=== PATIENT | female | born 1975 | race Caucasian/White ===

== ENCOUNTER → 2017-06-01 | Day surgery (SDC) | payer OTHER ==
[~2017-06-01] MED LIST: BUPIVACAINE HCL 0.5% INJ 30 ML VIAL INJ ONE; CLINDAMYCIN PHOS 900MG/ D5W 50 50 ML IV ONE; DEXAMETHASONE SOD PHOS INJ 4 MG/ML VIAL ONE; DIPHENHYDRAMINE HCL INJ 1 ML ONE; EPHEDRINE SULFATE INJ 50 MG/10 ML SYR ONE; FENTANYL CITRATE/PF 100MCG/2 ML INJ ONE; HYDROMORPHONE 2MG/ML INJ IV SCH; LEXAPRO10 MG PO; LIDOCAINE HCL 2% LOCAL INJ 5 ML SDV VIAL INJ ONE; MIDAZOLAM HCL 2 MG/2 ML VIAL ONE; ONDANSETRON HCL INJ 2 MG/ML VIAL ONE; PROPOFOL IV EMULSION 10 MG/ML 20 ML VIAL ONE; SEVOFLURANE INHAL SOLN 250 ML PEN BTL ONE
--- NOTE | 2017-06-01 10:25 | Operative Report ---
DATE OF PROCEDURE: June 01, 2017 INSTRUCTOR MODELING: Kaveh Meier PA-C The patient was brought to the operating room for induction of anesthesia. Throughout this case, my PA's assistance was necessary for retraction of soft tissue and positioning of the extremity. This allows for efficient and technically successful execution of the operation and is considered medically necessary. PREOPERATIVE DIAGNOSIS: Comminuted, displaced, right distal radius fracture. POSTOPERATIVE DIAGNOSIS: Comminuted, displaced, right distal radius fracture. PROCEDURE: Open reduction and internal fixation, right distal radius. INDICATIONS: The patient is a 42-year-old lady who has a right distal radius fracture. She has marked volar displacement. The findings and options have been discussed with the patient. We plan on open reduction with internal fixation using a volar plate. The risks and benefits have been discussed. She states she understands and wishes to proceed. DESCRIPTION OF PROCEDURE: The patient was brought to the operating room and placed under general anesthetic. She received prophylactic antibiotics in the holding area. Her right upper extremity was prepped and draped in a sterile manner. A preoperative time out was performed. The extremity was exsanguinated, and a proximal tourniquet was inflated to 250 mmHg. A volar approach to the distal radius was made. The floor of the flexor carpi radialis was identified and utilized. Care was taken to avoid injury to the palmar cutaneous branch of the median nerve. The flexor carpi radialis was retracted to the ulnar aspect. The pronator quadratus was elevated off of the distal radius. The fracture site was identified. There was marked volar displacement. A [employer] volar locking plate was used to assist in obtaining a reduction. The plate was sequentially tightened with a compression screw while traction was applied. Intraoperative x-ray was used to assist in positioning the plate. The plate was fixed to the distal radius using a combination of locking and compression screws. Intraoperative x-rays confirmed anatomic reduction and good position of the hardware. The wound was irrigated. The pronator quadratus was reapproximated. The skin was closed with subcuticular Vicryl and interrupted nylon stitches. A sterile bandage and a sugar-tong splint were applied. The patient was extubated and transported to the recovery room in stable condition. There was no blood loss, and all needle and sponge counts were correct. Job#: [id number] MH
== END | disposition home or self-care (01) ==
LOC: OR 05:45
PROVIDERS: ATTEND Specialist
DX: S52.571A Other intraarticular fracture of lower end of right radius, initial encounter for closed fracture (principal); F41.9 Anxiety disorder, unspecified; W18.40XA Slipping, tripping and stumbling without falling, unspecified, initial encounter; Y93.01 Activity, walking, marching and hiking; Y92.89 Other specified places as the place of occurrence of the external cause; Y99.8 Other external cause status
CPT/HCPCS: 25608; 81025; J1100; J1200; J2001; J2250; J2405; 76000

== ENCOUNTER 2018-05-15 10:06 | Emergency (ER) | payer OTHER ==
[~2018-05-15] VITALS: Ht 172.7 cm; Wt 72.6 kg
[~2018-05-15 10:06] MED LIST changes: -BUPIVACAINE HCL 0.5% INJ 30 ML VIAL INJ ONE; -CLINDAMYCIN PHOS 900MG/ D5W 50 50 ML IV ONE; -DEXAMETHASONE SOD PHOS INJ 4 MG/ML VIAL ONE; -DIPHENHYDRAMINE HCL INJ 1 ML ONE; -EPHEDRINE SULFATE INJ 50 MG/10 ML SYR ONE; -FENTANYL CITRATE/PF 100MCG/2 ML INJ ONE; -HYDROMORPHONE 2MG/ML INJ IV SCH; -LIDOCAINE HCL 2% LOCAL INJ 5 ML SDV VIAL INJ ONE; -MIDAZOLAM HCL 2 MG/2 ML VIAL ONE; -ONDANSETRON HCL INJ 2 MG/ML VIAL ONE; -PROPOFOL IV EMULSION 10 MG/ML 20 ML VIAL ONE; -SEVOFLURANE INHAL SOLN 250 ML PEN BTL ONE
--- OUTSIDE RECORDS SUMMARY | 2018-05-15 10:09 | XMS REPORT | Encounter Summary ---
Author Organization Unknown Address [address] [place] [address] Phone [phone] Care Team Providers Care Curator Of Photography And Prints Name Role Phone Ralph Cruz 3 [phone] Reason for Visit Medical Complaint Instructions 1. Allergic rhinitis fluticasone 50 mcg/actuation nasal spray,suspension allergies: care instructions Depo-Medrol 80 mg/mL suspension for injection rapid flu (A+B) 2. Allergic cough benzonatate 200 mg capsule Discussion Note Pt is in NAD; Verbalizes understanding of all instructions with no questions at this time. Plan of Care Patient Instructions Take fluticasone as needed for congestion. Bramwell one spray in each nostril twice a day. Take a warm, steamy shower, blow your nose thereafter, and spray in each nostril. Tilt your head up for about 10 seconds and breath through your mouth. Do not sniff or snort the medication in or else the medication will go to your throat and not be absorbed appropriately. Take over the counter Xyzal for allergy like symptoms like runny nose, sneezing and watery eyes. Take benzonatate for cough as directed. Take medications as prescribed and follow up with a PCP within 2-3 if symptoms worsen as discussed. Reminders Provider Appointments None recorded. Lab Rapid Flu (A+B) 02/25/2017 [facility] Referral None recorded. Procedures None recorded. Surgeries None recorded. Imaging None recorded. Medications Name Start Date acetaminophen 300 mg-codeine 30 mg tablet benzonatate 200 mg capsule Take 1 capsule 3 times a day by oral route as needed. ymseaicnzatoskf-bsnohaqcmspgwpo-OH 2 mg-30 mg-10 mg/5 mL syrup chlorhexidine gluconate 0.12 % mouthwash Depo-Medrol 80 mg/mL suspension for injection 80 mg/mL IM injectable x 1 escitalopram 10 mg tablet fluticasone 50 mcg/actuation nasal spray,suspension Bramwell 2 sprays every day by intranasal route as needed. terbinafine HCl 250 mg tablet Medications Administered Name Date Depo-Medrol 80 mg/mL suspension for injection 80 mg/mL IM injectable x 1 [id number] Vitals Height Weight BMI Blood Pressure 5 ft 8 in 155 lbs 23.6 kg/m2 120/74 mm[Hg] Lab Results Date Name Specimen Result Interpretation Description Value Range Status Address Rapid Flu (A+B) Influenza a negative [facility]: [address] [place] [address] Influenza B negative [facility]: [facility] Allergies Code Code System Name Reaction Severity Status Onset Penicillins Active Problems None recorded. Procedures None recorded. Vaccine List None recorded. Social History Smoking Status Never Smoker Past Encounters 02/25/2017 Allergic Rhinitis; Allergic Cough Citlalli Perla, CITY ADMINISTRATOR-C: [address] [place] [address], Ph. History of Present Illness Gvims-Ozcfgposiz-Lhqlikn Reported By: Patient HPI: Location: head/sinuses, chest. Quality: nasal/sinus congestion, dry cough. Duration: 3-4days. Severity: moderate. Onset/Timing: gradual. Context: no sick contacts, no foreign travel, non-smoker, allergies. Modifying factors: OTC medication. Associated Symptoms: no sputum production, no shortness of breath, no wheezing, no change in number of pillows needed to sleep at night, no sweats, no significant weight gain, no significant weight loss, no morning cough, no sore throat, no vomiting, no diarrhea, no rash, no nausea, no fever, no muscle aches, no headache; nasal congestion, sinus pressure, rhinorrhea, post nasal drip Review of Systems:ROS as noted in the HPI Review of Systems Basic Reported By: Patient Physical Exam Adult Basic, 14-21 Yr Male, Adult Female Complete Reported By: Patient Constitutional: General Appearance: healthy-appearing, well-nourished, well-developed. Level of Distress: NAD. Ambulation: ambulating normally Psychiatric: Mental Status: active and alert. Orientation: to time, to place, to person Vjw-Mqsv-Yhngs-Throat: Ears: no lesions on external ear, no outer ear tenderness, EACs clear, TMs clear. Hearing: no hearing loss. Nose: no lesions on external nose, nares patent, no septal deviation, nasal passages clear, no sinus tenderness, nasal discharge--rhinorrhea, post nasal drip; pale and edematous nasal turbinates bilaterally. Lips, Teeth, and Gums: no mouth or lip ulcers, no bleeding gums, normal dentition. Oropharynx: moist mucous membranes, no erythema, no exudates, tonsils not enlarged Neck: Lymph Nodes: no cervical LAD Lungs: Respiratory effort: no dyspnea, no tachypnea, no use of accessory muscles, no intercostal retractions. Auscultation: breath sounds normal Cardiovascular: Heart Auscultation: RRR, no murmurs Neurologic: Gait and Station: normal gait, normal station
--- OUTSIDE RECORDS SUMMARY | 2018-05-15 10:09 | XMS REPORT | Encounter Summary ---
Author Organization Unknown Address [address] [place] [address] Phone [phone] Care Team Providers Care Vp Biology Name Role Phone Ralph Cruz 3 [phone] Reason for Visit Medical Complaint Instructions 1. Viral bronchitis rapid flu (A+B) ProAir HFA 90 mcg/actuation aerosol inhaler 2. Sinusitis fluticasone 50 mcg/actuation nasal spray,suspension 3. Cough rapid strep group A, throat benzonatate 200 mg capsule Discussion Note Take all medicines exactly as prescribed. Call your doctor if you think you are having a problem with your medicine. Get some extra rest. Take an xpyn-xfx-fdvprvm pain medicine, such as acetaminophen (Tylenol), ibuprofen (Advil, Motrin), or naproxen (Aleve) to reduce fever and relieve body aches. Read and follow all instructions on the label. Do not take two or more pain medicines at the same time unless the doctor told you to. Many pain medicines have acetaminophen, which is Tylenol. Too much acetaminophen (Tylenol) can be harmful. Take an zqcu-jtd-rvohyky cough medicine that contains dextromethorphan to help quiet a dry, hacking cough so that you can sleep. Avoid cough medicines that have more than one active ingredient. Read and follow all instructions on the label. Breathe moist air from a humidifier, hot shower, or sink filled with hot water. The heat and moisture will thin mucus so you can cough it out. Do not smoke. Smoking can make bronchitis worse. If you need help quitting, talk to your doctor about stop-smoking programs and medicines. These can increase your chances of quitting for good. Patient educational handouts: No information available. Plan of Care Reminders Provider Appointments None recorded. Lab Rapid Strep Group a, Throat 03/28/2018 [facility] Rapid Flu (A+B) 03/28/2018 [facility] Referral None recorded. Procedures None recorded. Surgeries None recorded. Imaging None recorded. Medications Name Start Date benzonatate 200 mg capsule Take 1 capsule 3 times a day by oral route as needed for 10 days. escitalopram 10 mg tablet fluticasone 50 mcg/actuation nasal spray,suspension Nehalem 2 sprays twice a day by intranasal route as needed for 7 days. ProAir HFA 90 mcg/actuation aerosol inhaler Inhale 2 puffs 4 times a day by inhalation route as needed for 7 days. Medications Administered None recorded. Vitals Height Weight BMI Blood Pressure 5 ft 8 in 159 lbs 24.2 kg/m2 110/80 mm[Hg] Lab Results Date Name Specimen Result Interpretation Description Value Range Status Address Rapid Flu (A+B) Influenza a negative [facility]: [address] [place] [address] Influenza B negative [facility]: [address] [place] [address] Rapid Strep Group a, Throat Result negative [facility]: [address] [place] [address] Swab Location Left and Right tonsillar pillars [facility]: [address] [place] [address] Allergies Code Code System Name Reaction Severity Status Onset Penicillins Active Problems Name Status Onset Date Source Gastroesophageal Reflux Disease Active 03/28/2018 Anxiety Active Allergic Rhinitis Active Procedures None recorded. Vaccine List None recorded. Social History Smoking Status Never Smoker Past Encounters 03/28/2018 Viral Bronchitis; Sinusitis; Cough Drooteo Albrecht PA-C: [address] [place] [address], Ph. History of Present Illness Ldsca-Nsdpwcweup-Vrijwba Reported By: Patient HPI: Location: head/sinuses. Quality: productive cough, colored phlegm, nasal/sinus congestion. Duration: 4days. Severity: mild. Onset/Timing: sudden. Context: no foreign travel, non-smoker, sick contact. Modifying factors: OTC medication. Associated Symptoms: no shortness of breath, no wheezing, no change in number of pillows needed to sleep at night, no sweats, no significant weight gain, no significant weight loss, no morning cough, no sore throat, no vomiting, no diarrhea, no rash, no nausea, no fever, no muscle aches, green sputum, headache Review of Systems Basic Reported By: Patient Constitutional: Constitutional: no fever Eyes: Eyes: no eye complaints Cipe-Ikfc-Vnsuv-Throat: Ears: ear pain. Nose: nose/sinus problems. Mouth/Throat: no sore throat, no bleeding gums, no mouth complaints, no teeth problems Cardiovascular: Cardiovascular: no chest pain, no shortness of breath, no known heart murmur Respiratory: Respiratory: no wheezing, no shortness of breath, cough Gastrointestinal: Gastrointestinal: no abdominal pain, no vomiting / diarrhea Genitourinary: Genitourinary: no urinary complaints, no discharge Musculoskeletal: Musculoskeletal: no muscle aches, no muscle weakness, no arthralgias/joint pain, no back pain Skin: Skin: no abnormal / changing mole, no jaundice, no rashes Neurologic: Neurologic: no loss of consciousness, no weakness, no numbness, no seizures, no dizziness, no headaches, headache Physical Exam Adult Basic, Adult Female Complete Reported By: Patient Constitutional: General Appearance: healthy-appearing, well-nourished, well-developed. Level of Distress: NAD. Ambulation: ambulating normally Psychiatric: Mental Status: active and alert. Orientation: to time, to place, to person Eyes: Lids and Conjunctivae: non-injected, no discharge, no pallor. Pupils: PERRLA. EOM: EOMI. Sclerae: non-icteric. Vision: acuity grossly intact Xww-Emff-Kklsp-Throat: Ears: no lesions on external ear, no outer ear tenderness, EACs clear, TMs clear, middle ear fluid. Hearing: no hearing loss. Nose: no lesions on external nose, nares patent, no septal deviation, nasal passages clear, sinus tenderness, nasal discharge, nasal discharge--purulent, nasal discharge--rhinorrhea, post nasal drip. Lips, Teeth, and Gums: no mouth or lip ulcers, no bleeding gums, normal dentition. Oropharynx: moist mucous membranes, no erythema, no exudates, tonsils not enlarged; cobblestoning Neck: Neck: supple, trachea midline, no masses, FROM. Lymph Nodes: no cervical LAD, no supraclavicular LAD Lungs: Respiratory effort: no dyspnea, no tachypnea, no use of accessory muscles, no intercostal retractions. Auscultation: breath sounds normal; harsh breath sounds scattered across bilateral post upper and lower lobes Cardiovascular: Heart Auscultation: RRR, no murmurs
--- OUTSIDE RECORDS SUMMARY | 2018-05-15 10:09 | XMS REPORT | Encounter Summary ---
Author Organization Unknown Address [address] [place] [address] Phone [phone] Care Team Providers Care Closer On Name Role Phone Ralph Cruz 3 [phone] Reason for Visit Medical Complaint Instructions 1. Exposure to Influenzavirus Tamiflu 75 mg capsule rapid flu (A+B) 2. Pain in throat rapid strep group A, throat Discussion Note: None recorded. Patient educational handouts: No information available. Plan of Care Patient Instructions otc tylenol and ibuprofen for body aches. increase fluids. otc mucinex as needed. follow up pcp Reminders Provider Appointments None recorded. Lab Rapid Flu (A+B) 06/25/2016 [facility] Rapid Strep Group a, Throat 06/25/2016 [facility] Referral None recorded. Procedures None recorded. Surgeries None recorded. Imaging None recorded. Medications Name Start Date azithromycin 250 mg tablet gnoryecfrrmjobd-yhjzmglognvivqz-IH 2 mg-30 mg-10 mg/5 mL syrup escitalopram 10 mg tablet gatifloxacin 0.5 % eye drops PLACE 1 GTT OU BID prednisolone acetate 1 % eye drops,suspension Tamiflu 75 mg capsule Take 1 capsule every day by oral route for 10 days. terbinafine HCl 250 mg tablet Medications Administered None recorded. Vitals Height Weight BMI Blood Pressure 5 ft 8 in 155 lbs 23.6 116/72 Lab Results Date Name Result Description Value Range Status Rapid Strep Group a, Throat Result negative Swab Location Left and Right tonsillar pillars Rapid Flu (A+B) Influenza a negative Influenza B negative Allergies None recorded. Problems None recorded. Procedures None recorded. Vaccine List None recorded. Social History Smoking Status Never Smoker Past Encounters 06/25/2016 Exposure to Influenzavirus; Pain in Throat Osvaldo Bridges MECHANICAL CAD DRAFTER-C: [address] [place] [address], Ph. History of Present Illness Throat-Oral Complaint Reported By: Patient HPI: Location: throat. Quality: sore throat. Severity: moderate. Duration: 2 days. Onset/Timing: gradual. Context: no foreign travel, non-smoker, sick contact. Modifying factors: OTC medication. Associated Symptoms: no sputum production, no shortness of breath, no wheezing, no change in number of pillows needed to sleep at night, no sweats, no significant weight gain, no significant weight loss, no morning cough, no vomiting, no diarrhea, no rash, no nausea, sore throat Review of Systems:ROS as noted in the HPI Review of Systems Basic Reported By: Patient Physical Exam Adult Basic, Adult Female Complete Reported By: Patient Constitutional: General Appearance: healthy-appearing, well-nourished. Level of Distress: NAD. Ambulation: ambulating normally Psychiatric: Mental Status: active and alert Eyes: Lids and Conjunctivae: non-injected, no discharge Lfe-Zdys-Gtdwo-Throat: Ears: no lesions on external ear, no outer ear tenderness, EACs clear, TMs clear. Hearing: no hearing loss. Nose: no lesions on external nose, nares patent, no septal deviation, nasal passages clear, no sinus tenderness, no nasal discharge. Lips, Teeth, and Gums: no mouth or lip ulcers. Oropharynx: moist mucous membranes, no erythema, no exudates, tonsils not enlarged Neck: Neck: trachea midline. Lymph Nodes: no cervical LAD Lungs: Respiratory effort: no dyspnea, no tachypnea, no use of accessory muscles, no intercostal retractions. Auscultation: breath sounds normal Cardiovascular: Heart Auscultation: RRR, no murmurs
--- OUTSIDE RECORDS SUMMARY | 2018-05-15 10:09 | XMS REPORT | Continuity of Care Document ---
Author Author [facility] Interface Address Unknown Phone Unavailable Problems Problem Status Onset Date Classification Date Reported Comments Source Sinusitis 03/28/2018 Diagnosis 03/28/2018 [facility] Cough 03/28/2018 Diagnosis 03/28/2018 [facility] Viral bronchitis 03/28/2018 Diagnosis 03/28/2018 [facility] Gastroesophageal Reflux Disease 03/28/2018 Problem 03/28/2018 [facility] Laryngitis 07/07/2017 Problem 07/08/2017 [facility] Viral Upper Respiratory Tract Infection 07/07/2017 Problem 07/08/2017 [facility] Viral upper respiratory tract infection 07/07/2017 Diagnosis 07/08/2017 [facility] Allergic rhinitis 02/25/2017 Diagnosis 02/25/2017 [facility] Allergic cough 02/25/2017 Diagnosis 02/25/2017 [facility] Exposure to Influenzavirus 06/25/2016 Diagnosis 06/25/2016 [facility] Pain in throat 06/25/2016 Diagnosis 06/25/2016 [facility] Anxiety Problem 03/28/2018 [facility] Allergic Rhinitis Problem 03/28/2018 [facility] Medications Medication Details Route Status Patient Instructions Ordering Provider Order Date Source Acetaminophen 300 MG / Codeine Phosphate 30 MG Oral Tablet acetaminophen 300 mg-codeine 30 mg tablet Active [facility] benzonatate 200 MG Oral Capsule benzonatate 200 mg capsule Take 1 capsule 3 times a day by oral route as needed for 10 days. Active [facility] Brompheniramine Maleate 0.4 MG/ML / Dextromethorphan Hydrobromide 2 MG/ML / Pseudoephedrine Hydrochloride 6 MG/ML Oral Solution zipsmgzkifrlgxd-ckaqussaxuismbw-XW 2 mg-30 mg-10 mg/5 mL syrup Active [facility] chlorhexidine gluconate 1.2 MG/ML Mouthwash chlorhexidine gluconate 0.12 % mouthwash Active [facility] 1 ML methylprednisolone acetate 80 MG/ML Injection [Depo-Medrol] Depo-Medrol 80 mg/mL suspension for injection 80 mg/mL IM injectable x 1 Active [facility] Escitalopram 10 MG Oral Tablet escitalopram 10 mg tablet Active [facility] Fluticasone propionate 0.05 MG/ACTUAT Metered Dose Nasal Caney fluticasone 50 mcg/actuation nasal spray,suspension Caney 2 sprays twice a day by intranasal route as needed for 7 days. Active [facility] terbinafine 250 MG Oral Tablet terbinafine HCl 250 mg tablet Active [facility] Prednisone 20 MG Oral Tablet prednisone 20 mg tablet Take 3 tabs PO QD x 2 days, the take 2 tabs PO QD x 2 days, then take 1 tab PO QD x 2 days. Take with food. Active [facility] 200 ACTUAT Albuterol 0.09 MG/ACTUAT Metered Dose Inhaler [ProAir] ProAir HFA 90 mcg/actuation aerosol inhaler Inhale 2 puffs every 4-6 hours by inhalation route as needed. Active [facility] Albuterol 0.09 MG/ACTUAT Metered Dose Inhaler ProAir HFA 90 mcg/actuation aerosol inhaler Inhale 2 puffs 4 times a day by inhalation route as needed for 7 days. Active [facility] Azithromycin 250 MG Oral Tablet azithromycin 250 mg tablet Active [facility] gatifloxacin 5 MG/ML Ophthalmic Solution gatifloxacin 0.5 % eye drops PLACE 1 GTT OU BID Active [facility] prednisolone acetate 10 MG/ML Ophthalmic Suspension prednisolone acetate 1 % eye drops,suspension Active [facility] Oseltamivir 75 MG Oral Capsule [Tamiflu] Tamiflu 75 mg capsule Take 1 capsule every day by oral route for 10 days. Active [facility] Allergies, Adverse Reactions, Alerts Substance Category Reaction Severity Reaction type Status Date Reported Comments Source Penicillins Allergy to substance 02/25/2017 [facility] Immunizations Immunization Date Given Site Status Last Updated Comments Source Results Order Name Results Value Reference Range Date Interpretation Comments Source Influenza A negative 03/28/2018 [facility] Influenza B negative 03/28/2018 [facility] RESULT negative 03/28/2018 [facility] SWAB LOCATION Left and Right tonsillar pillars 03/28/2018 [facility] RESULT negative 07/07/2017 [facility] SWAB LOCATION Left and Right tonsillar pillars 07/07/2017 [facility] Influenza A negative 07/07/2017 [facility] Influenza B negative 07/07/2017 [facility] Influenza A negative 02/25/2017 [facility] Influenza B negative 02/25/2017 [facility] RESULT negative 06/25/2016 [facility] SWAB LOCATION Left and Right tonsillar pillars 06/25/2016 [facility] Influenza A negative 06/25/2016 [facility] Influenza B negative 06/25/2016 [facility] Vital Signs Vital Sign Value Date Comments Source Diastolic (mm Hg) 80 03/28/2018 [facility] Height 68 03/28/2018 [facility] Systolic (mm Hg) 110 03/28/2018 [facility] Weight 159 03/28/2018 [facility] Diastolic (mm Hg) 74 07/07/2017 [facility] Height 68 07/07/2017 [facility] Systolic (mm Hg) 112 07/07/2017 [facility] Weight 156 07/07/2017 [facility] Diastolic (mm Hg) 74 02/25/2017 [facility] Height 68 02/25/2017 [facility] Systolic (mm Hg) 120 02/25/2017 [facility] Weight 155 02/25/2017 [facility] Diastolic (mm Hg) 72 06/25/2016 [facility] Height 68 06/25/2016 [facility] Systolic (mm Hg) 116 06/25/2016 [facility] Weight 155 06/25/2016 [facility] Encounters Location Location Details Encounter Type Encounter Number Reason For Visit Attending Provider ADM Date DC Date Status Source [place] - [facility] - [id number] NELIDA Arenas-C: [address] [place] [address], Ph. [id number] Osvaldo Bridges 06/25/2016 [facility] [place] - [facility] - [id number] ZambranoP-C: [address] [place] [address], Ph. [id number] Citlalli Perla 02/25/2017 [facility] [place] - [facility] - [id number] Perla SCRIPT GIRL-C: [address] [place] [address], Ph. [id number] Citlalli Neffroy 07/07/2017 [facility] [place] - [facility] - [id number] AcevedoC: [address] [facility], [place] [address], Ph. [id number] Doroteo Albrecht 03/28/2018 [facility] Procedures Procedure Code Date Perfomer Comments Source
--- OUTSIDE RECORDS SUMMARY | 2018-05-15 10:09 | XMS REPORT | Encounter Summary ---
Author Organization Unknown Address [address] [place] [id number] Phone [phone] Care Team Providers Care Biological Engineer Name Role Phone Ralph Cruz 3 [phone] Reason for Visit Medical Complaint Instructions 1. Viral upper respiratory tract infection rapid flu (A+B) ProAir HFA 90 mcg/actuation aerosol inhaler benzonatate 200 mg capsule 2. Laryngitis prednisone 20 mg tablet rapid strep group A, throat Discussion Note Pt is in NAD; Verbalizes understanding of all instructions with no questions at this time. Patient educational handouts: No information available. Plan of Care Patient Instructions Start ProAir Inhalers 2 puffs every 4-6 hrs as needed for shortness of breath/wheezing. Take Steroid taper as directed and with food to avoid GI discomfort. Take fluticasone as needed for congestion. [place] one spray in each nostril twice a day. Take a warm, steamy shower, blow your nose thereafter, and spray in each nostril. Tilt your head up for about 10 seconds and breath through your mouth. Do not sniff or snort the medication in or else the medication will go to your throat and not be absorbed appropriately. Take Benzonatate for cough as directed. Alternate with Ibuprofen and acetaminophen every 4hrs as needed for pain/fever/headache. Proper hydration and rest. Return to work/school if free of fever for 24-hrs. Do not share any utensils/cups, no kissing, recommend hand washing after coughing/sneezing/blowing nose and cover face when you do so. Take medications as prescribed. Follow up with your PCP within 2-3 days if symptoms worsen as discussed. In case of emergency call 911 or go to nearest ER. Reminders Provider Appointments None recorded. Lab Rapid Flu (A+B) 07/07/2017 [facility] Rapid Strep Group a, Throat 07/07/2017 [facility] Referral None recorded. Procedures None recorded. Surgeries None recorded. Imaging None recorded. Medications Name Start Date benzonatate 200 mg capsule Take 1 capsule 3 times a day by oral route as needed. escitalopram 10 mg tablet prednisone 20 mg tablet Take 3 tabs PO QD x 2 days, the take 2 tabs PO QD x 2 days, then take 1 tab PO QD x 2 days. Take with food. ProAir HFA 90 mcg/actuation aerosol inhaler Inhale 2 puffs every 4-6 hours by inhalation route as needed. Medications Administered None recorded. Vitals Height Weight BMI Blood Pressure 5 ft 8 in 156 lbs 23.7 kg/m2 112/74 mm[Hg] Lab Results Date Name Specimen Result Interpretation Description Value Range Status Address Rapid Strep Group a, Throat Result negative [facility]: [address] [place] [address] Swab Location Left and Right tonsillar pillars [facility]: [address] [place] [address] Rapid Flu (A+B) Influenza a negative [facility]: [address] [place] [address] Influenza B negative [facility]: [address] [place] [address] Allergies Code Code System Name Reaction Severity Status Onset Penicillins Active Problems Name Status Onset Date Source Laryngitis Active 07/07/2017 Viral Upper Respiratory Tract Infection Active 07/07/2017 Anxiety Active Allergic Rhinitis Active Procedures None recorded. Vaccine List None recorded. Social History Smoking Status Never Smoker Past Encounters 07/07/2017 Viral Upper Respiratory Tract Infection; Laryngitis Citlalli Perla, [facility]: [address] [place] [address], Ph. History of Present Illness Throat-Oral Complaint Reported By: Patient HPI: Location: throat. Quality: productive cough, congested; hoarseness. Severity: moderate. Duration: 4 days. Onset/Timing: sudden. Context: no sick contacts, no foreign travel, non-smoker, allergies. Modifying factors: ; None. Associated Symptoms: no fever, no headache, no shortness of breath, no wheezing, no change in number of pillows needed to sleep at night, no sweats, no significant weight gain, no significant weight loss, no morning cough, no vomiting, no diarrhea, no rash, no nausea, body aches, yellow-green, thick sputum; sinus pressure, nasal congestion, post nasal drip, hoarseness, productive cough, and chills x 4 days [id number] Reported By: Patient HPI: Quality: symptoms worse during the day. Duration: constant, 4 days. Context: no ill contacts, no tick/insect bites, no recent travel, no new medications. Associated Symptoms: no fever/chills, no headache, no muscle aches, no rash, no lethargy, cough, nasal passage blockage (stuffiness), nasal discharge; sinus pressure, post nasal drip, hoarseness, body aches, and chills. Modifying Factors nothing gives relief Review of Systems:ROS as noted in the HPI Review of Systems Basic Reported By: Patient Physical Exam Adult Basic, Adult Female Complete Reported By: Patient Constitutional: General Appearance: healthy-appearing, well-nourished, well-developed. Level of Distress: NAD. Ambulation: ambulating normally Psychiatric: Mental Status: active and alert. Orientation: to time, to place, to person Eyes: Lids and Conjunctivae: non-injected, no discharge, no pallor. Pupils: PERRLA Lhm-Rotb-Txaxz-Throat: Ears: no lesions on external ear, no outer ear tenderness, EACs clear, TMs clear. Hearing: no hearing loss. Nose: no lesions on external nose, nares patent, no septal deviation, nasal passages clear, no sinus tenderness, nasal discharge--rhinorrhea, post nasal drip; pink and edematous nasal turbinates bilaterally. Lips, Teeth, [...]
[2018-05-15] MEDS ORDERED: CYCLOBENZAPRINE HCL 10 MG TAB PO NR (10:45)
[2018-05-15] MEDS ORDERED: KETOROLAC TROMETHAMINE 60 MG/2 ML VIAL IM ONE (10:45)
== END 2018-05-15 11:06 | disposition home or self-care (01) ==
LOC: ER 10:06 → FSED 11:06
DX: M54.2 Cervicalgia (principal); S16.1XXA Strain of muscle, fascia and tendon at neck level, initial encounter; V43.52XA Car driver injured in collision with other type car in traffic accident, initial encounter; Y92.488 Other paved roadways as the place of occurrence of the external cause; K21.9 Gastro-esophageal reflux disease without esophagitis
CPT/HCPCS: 99282; J1885

== ENCOUNTER 2020-10-14 10:07 | Inpatient (IN) | payer OTHER ==
[~2020-10-14] VITALS: Ht 172.7 cm; Wt 72.6 kg
[2020-10-14] MEDS ORDERED: SODIUM CHLORIDE 0.9% 1000ML 1,000 ML IV STA (10:40)
[2020-10-14 10:51] LABS: BASOPHILS % 0.4 % (0.0-1.0); EOSINOPHILS % 0.2 % (0.0-6.0); HEMATOCRIT 42.9 % (34.2-44.1); HEMOGLOBIN 14.4 g/dL (12.0-16.0); LYMPHOCYTES # (AUTO) 0.7 (1.0-3.2); MEAN CORPUSCULAR HEMOGLOBIN 28.3 pg (28-32); MEAN CORPUSCULAR HGB CONC 33.6 g/dL (31-35); MEAN CORPUSCULAR VOLUME 84.4 fL (81-99); MONOCYTES # (AUTO) 0.4 (0.2-0.8); NEUTROPHILS # (AUTO) 3.7 (2.1-6.9); PLATELET COUNT 198 x10e3/uL (140-360); RED BLOOD COUNT 5.08 x10e6/uL (3.6-5.1); RED CELL DISTRIBUTION WIDTH 14.7 % (11.7-14.4)
[2020-10-14] MEDS ORDERED: ONDANSETRON HCL INJ 2MG/ML 2ML 2 MG/ML VIAL IV NR (11:00)
[2020-10-14] MEDS ORDERED: PANTOPRAZOLE 40 MG 10ML VIAL IV NR (11:00)
[2020-10-14] MEDS ORDERED: MORPHINE SULFATE INJ 4 MG/ML INJ 1ML IV NR (11:00)
[2020-10-14 11:11] LABS: ALANINE AMINOTRANSFERASE 26 IU/L (0-55); ALBUMIN 4.3 g/dL (3.5-5.0); ALBUMIN/GLOBULIN RATIO 1.1 (0.8-2.0); ALKALINE PHOSPHATASE 77 IU/L (40-150); ANION GAP 17.5 mmol/L (8-16); BLOOD UREA NITROGEN 22 mg/dL (7-26); BUN/CREATININE RATIO 26 (6-25); CALCIUM 8.9 mg/dL (8.4-10.2); CARBON DIOXIDE 22 mmol/L (22-29); CHLORIDE 104 mmol/L (98-107); CREATINE KINASE 82 IU/L (29-168); CREATININE, SERUM 0.84 mg/dL (0.57-1.11); EST GLOMERULAR FILTRATION RATE > 60 ML/MIN (60-); GLUCOSE 103 mg/dL (74-118); MAGNESIUM 2.1 MG/DL (1.3-2.1); POTASSIUM 4.5 mmol/L (3.5-5.1); SODIUM 139 mmol/L (136-145)
[2020-10-14] MEDS ORDERED: SODIUM CHLORIDE 0.9% 1000ML 1,000 ML ONE (11:45)
[2020-10-14] MEDS ORDERED: SODIUM CHLORIDE 0.9% 1000ML 1,000 ML IV ONE (11:45)
[2020-10-14 11:52] LABS: CLARITY,URINE CLEAR (CLEAR); COLOR,URINE YELLOW (YELLOW)
[2020-10-14 11:54] LABS: LEUKOCYTE ESTERASE ,URINE NEGATIVE (NEGATIVE); NITRITE,URINE NEGATIVE (NEGATIVE)
[2020-10-14 11:55] LABS: KETONES,URINE 1+ (NEGATIVE); PROTEIN,URINE DIPSTICK 1+ (NEGATIVE); URINE UROBILINOGEN 0.2 mg/dL (0.2 - 1)
[2020-10-14 12:02] LABS: AMYLASE 55 U/L (25-125); LIPASE 19 U/L (8-78)
[2020-10-14 12:05] LABS: RBC,URINE 0-5 /HPF (0-5)
[2020-10-14 12:07] LABS: BACTERIA,URINE MODERATE /HPF; EPITHELIAL CELLS,URINE FEW /LPF
[2020-10-14] MEDS ORDERED: IOPAMIDOL 370 MG/ML 200 ML INFUS..BTL INJ ONE (12:32)
[2020-10-14] MEDS ORDERED: SODIUM CHLORIDE 0.9% 50ML 50 ML ONE (12:32)
[2020-10-14] MEDS ORDERED: CEFTRIAXONE 1 GM in SODIUM CHLORIDE 0.9% 50ML 50 ML IV SCH (13:45)
[2020-10-14] MEDS ORDERED: ESTRADIOL-NORE1 EAC1 PO (14:25)
[2020-10-14] MEDS: SODIUM CHLORIDE 0.9% 1000ML 1,000 ML IV SCH ×2 (14:39→20:32)
[2020-10-14 14:58] VITALS: BP 121/72
[2020-10-14] MEDS: ACETAMINOPHEN 325 MG TAB PO PRN (19:45)
[2020-10-14] MEDS: ESCITALOPRAM OXALATE 10 MG TAB PO SCH (19:45)
[2020-10-14] MEDS: PANTOPRAZOLE 40 MG 10ML VIAL IV SCH (19:48)
[2020-10-14 20:00] VITALS: BP 128/71
[2020-10-14 21:00] VITALS: BP 128/71
[2020-10-14] MEDS: METRONIDAZOLE 500MG/NS 100ML 100 ML IV SCH (21:28)
[2020-10-15] VITALS (8 sets, daily range): BP systolic 113–131; BP diastolic 59–73
[2020-10-15] MEDS: CEFTRIAXONE 1 GM in SODIUM CHLORIDE 0.9% 50ML 50 ML IV SCH ×2 (01:34→15:13)
[2020-10-15] MEDS: METRONIDAZOLE 500MG/NS 100ML 100 ML IV SCH ×3 (05:05→21:22)
[2020-10-15] MEDS: SODIUM CHLORIDE 0.9% 1000ML 1,000 ML IV SCH ×3 (05:05→21:22)
[2020-10-15] MEDS: ACETAMINOPHEN 325 MG TAB PO PRN (05:14)
[2020-10-15] MEDS: ONDANSETRON HCL INJ 2MG/ML 2ML 2 MG/ML VIAL IV PRN ×2 (05:14→21:57)
[2020-10-15 05:29] LABS: BASOPHILS % 0.4 % (0.0-1.0); EOSINOPHILS % 0.6 % (0.0-6.0); HEMATOCRIT 37.6 % (34.2-44.1); HEMOGLOBIN 12.4 g/dL (12.0-16.0); LYMPHOCYTES # (AUTO) 0.8 (1.0-3.2); LYMPHOCYTES % 16.5 % (18.0-39.1); MEAN CORPUSCULAR HEMOGLOBIN 28.4 pg (28-32); MEAN CORPUSCULAR VOLUME 86.2 fL (81-99); MONOCYTES # (AUTO) 0.5 (0.2-0.8); MONOCYTES % 9.7 % (4.4-11.3); NEUTROPHILS # (AUTO) 3.4 (2.1-6.9); NEUTROPHILS % 72.4 % (38.7-80.0); PLATELET COUNT 136 x10e3/uL (140-360); RED BLOOD COUNT 4.36 x10e6/uL (3.6-5.1); RED CELL DISTRIBUTION WIDTH 14.5 % (11.7-14.4)
[2020-10-15 05:57] LABS: ALANINE AMINOTRANSFERASE 23 IU/L (0-55); ALBUMIN 3.4 g/dL (3.5-5.0); ALBUMIN/GLOBULIN RATIO 1.1 (0.8-2.0); ALKALINE PHOSPHATASE 67 IU/L (40-150); ANION GAP 15.5 mmol/L (8-16); BLOOD UREA NITROGEN 19 mg/dL (7-26); BUN/CREATININE RATIO 26 (6-25); CALCIUM 7.8 mg/dL (8.4-10.2); CARBON DIOXIDE 20 mmol/L (22-29); CHLORIDE 109 mmol/L (98-107); CREATININE, SERUM 0.72 mg/dL (0.57-1.11); EST GLOMERULAR FILTRATION RATE > 60 ML/MIN (60-); GLUCOSE 71 mg/dL (74-118); POTASSIUM 3.5 mmol/L (3.5-5.1); SODIUM 141 mmol/L (136-145)
[2020-10-15] MEDS ORDERED: PANTOPRAZOLE SOD 40 MG TABEC PO SCH (07:30)
[2020-10-15] MEDS: PANTOPRAZOLE 40 MG 10ML VIAL IV SCH ×2 (08:25→21:18)
[2020-10-15] MEDS: ESCITALOPRAM OXALATE 10 MG TAB PO SCH (08:25)
[2020-10-15] MEDS: [UNRECOGNIZED DRUG - OTHER] PO SCH (08:26)
[2020-10-15] MEDS: ESTRADIOL PO SCH (08:26)
[2020-10-15] MEDS ORDERED: BUPIVACAINE 0.25% 30ML SDV ONE (11:29)
[2020-10-15] MEDS ORDERED: SEVOFLURANE INHAL SOLN 250 ML PEN BTL ONE (12:11)
[2020-10-15] MEDS ORDERED: PROPOFOL IV EMULSION 10 MG/ML 20 ML VIAL ONE (12:11)
[2020-10-15] MEDS ORDERED: ROCURONIUM BROMIDE 10 MG/ML 5ML VIAL IV ONE (12:11)
[2020-10-15] MEDS ORDERED: DEXAMETHASONE SOD PHOS INJ 4 MG/ML VIAL ONE (12:11)
[2020-10-15] MEDS ORDERED: LIDOCAINE HCL 2% LOCAL INJ 5 ML SDV VIAL INJ ONE (12:11)
[2020-10-15] MEDS ORDERED: POVIDONE IODINE 0.05% 0.05 % ML PO ONE (12:11)
[2020-10-15] MEDS ORDERED: ONDANSETRON HCL INJ 2MG/ML 2ML 2 MG/ML VIAL ONE (12:11)
[2020-10-15] MEDS: MORPHINE SULFATE INJ 4 MG/ML INJ 1ML IV PRN (21:57)
[2020-10-16 00:31] VITALS: BP 126/62
[2020-10-16] MEDS: CEFTRIAXONE 1 GM in SODIUM CHLORIDE 0.9% 50ML 50 ML IV SCH (01:50)
[2020-10-16] MEDS: METRONIDAZOLE 500MG/NS 100ML 100 ML IV SCH (05:23)
[2020-10-16] MEDS: SODIUM CHLORIDE 0.9% 1000ML 1,000 ML IV SCH (05:24)
[2020-10-16 05:49] VITALS: BP 121/63
[2020-10-16 05:53] LABS: BASOPHILS % 0.4 % (0.0-1.0); EOSINOPHILS % 0.6 % (0.0-6.0); HEMATOCRIT 34.7 % (34.2-44.1); HEMOGLOBIN 11.5 g/dL (12.0-16.0); LYMPHOCYTES # (AUTO) 1.2 (1.0-3.2); LYMPHOCYTES % 24.7 % (18.0-39.1); MEAN CORPUSCULAR HEMOGLOBIN 28.3 pg (28-32); MEAN CORPUSCULAR HGB CONC 33.1 g/dL (31-35); MEAN CORPUSCULAR VOLUME 85.5 fL (81-99); MONOCYTES # (AUTO) 0.7 (0.2-0.8); MONOCYTES % 14.6 % (4.4-11.3); NEUTROPHILS # (AUTO) 2.9 (2.1-6.9); NEUTROPHILS % 59.3 % (38.7-80.0); PLATELET COUNT 165 x10e3/uL (140-360); RED BLOOD COUNT 4.06 x10e6/uL (3.6-5.1); RED CELL DISTRIBUTION WIDTH 14.7 % (11.7-14.4)
[2020-10-16 06:12] LABS: ANION GAP 13.6 mmol/L (8-16); BLOOD UREA NITROGEN 9 mg/dL (7-26); BUN/CREATININE RATIO 12 (6-25); CALCIUM 7.8 mg/dL (8.4-10.2); CARBON DIOXIDE 22 mmol/L (22-29); CHLORIDE 108 mmol/L (98-107); CREATININE, SERUM 0.74 mg/dL (0.57-1.11); EST GLOMERULAR FILTRATION RATE > 60 ML/MIN (60-); GLUCOSE 96 mg/dL (74-118); POTASSIUM 3.6 mmol/L (3.5-5.1); SODIUM 140 mmol/L (136-145)
[2020-10-16 08:28] VITALS: BP 119/60
[2020-10-16] MEDS: ONDANSETRON HCL INJ 2MG/ML 2ML 2 MG/ML VIAL IV PRN (08:45)
[2020-10-16] MEDS: MORPHINE SULFATE INJ 4 MG/ML INJ 1ML IV PRN (08:45)
[2020-10-16] MEDS: PANTOPRAZOLE 40 MG 10ML VIAL IV SCH (08:50)
[2020-10-16] MEDS: ESCITALOPRAM OXALATE 10 MG TAB PO SCH (08:51)
[2020-10-16 08:53] VITALS: BP 119/60
[2020-10-16] MEDS: [UNRECOGNIZED DRUG - OTHER] PO SCH (09:00)
[2020-10-16] MEDS: ESTRADIOL PO SCH (09:00)
[2020-10-16] MEDS ORDERED: PROTONIX20 MG PO (09:16)
[2020-10-16] MEDS ORDERED: FLAGYL500 MG PO (09:16)
[2020-10-16] MEDS ORDERED: CIPRO500 MG PO (09:16)
[2020-10-16] MEDS ORDERED: CIPROFLOXACIN 500 MG TAB PO SCH (11:00)
[2020-10-16 12:32] VITALS: BP 125/70
[2020-10-16] MEDS ORDERED: ONDANSETRON HCL 4 MG ORAL DISINTEGRATING TAB PO PRN (13:00)
[2020-10-16] MEDS ORDERED: METRONIDAZOLE 500 MG TAB PO SCH (14:00)
[2020-10-16] MEDS ORDERED: PANTOPRAZOLE SOD 40 MG TABEC PO SCH (21:00)
== END 2020-10-16 13:35 | disposition home or self-care (01) | DRG 343 ==
LOC: ER 10:15 → ERHOLD 14:02 → MED/SURG 14:58
PROVIDERS: ADMIT Internal Medicine; ATTEND Internal Medicine
PROC: 0DTJ4ZZ Resection of Appendix, Percutaneous Endoscopic Approach (ICD-10-PCS; principal; 2020-10-15 10:30)
DX: K35.30 Acute appendicitis with localized peritonitis, without perforation or gangrene (principal); Z80.0 Family history of malignant neoplasm of digestive organs; Z80.8 Family history of malignant neoplasm of other organs or systems; Z20.822 Contact with and (suspected) exposure to COVID-19; F32.9 Major depressive disorder, single episode, unspecified
CPT/HCPCS: 36415; 74177; 76705; 80048; 80053; 81001; 82150; 82550; 82553; 83690; 83735; 84484; 84702; 85025; 85651; 86140; 87045; 87177; 87328; 88304; 99284; J0696; J1100; J2001; J2270; J2405; J7030; Q9967

== ENCOUNTER → 2020-11-23 | Day surgery (SDC) | payer OTHER ==
[~2020-11-23] MED LIST changes: +CIPRO500 MG PO; +ESTRADIOL-NORE1 EAC1 PO; +FENTANYL CITRATE/PF 100MCG/2 ML INJ ONE; +FLAGYL500 MG PO; +METOCLOPRAMIDE HCL 10 MG/2ML VIAL ONE; +MIDAZOLAM HCL 2 MG/2 ML VIAL ONE; +ONDANSETRON HCL INJ 2MG/ML 2ML 2 MG/ML VIAL ONE; +POVIDONE IODINE 0.05% 0.05 % ML PO ONE; +PROPOFOL IV EMULSION 10 MG/ML 20 ML VIAL ONE; +PROTONIX20 MG PO
[2020-11-23 14:00] VITALS: BP 126/67
== END | disposition home or self-care (01) ==
LOC: OR 08:46
PROVIDERS: ATTEND Internal Medicine Gastroenterology
DX: Z12.11 Encounter for screening for malignant neoplasm of colon (principal); K63.5 Polyp of colon; K31.7 Polyp of stomach and duodenum; K29.50 Unspecified chronic gastritis without bleeding; K21.00 Gastro-esophageal reflux disease with esophagitis, without bleeding; K22.70 Barrett's esophagus without dysplasia; K44.9 Diaphragmatic hernia without obstruction or gangrene; K64.8 Other hemorrhoids; Z88.6 Allergy status to analgesic agent; Z88.0 Allergy status to penicillin; Z68.25 Body mass index [BMI] 25.0-25.9, adult; Z80.0 Family history of malignant neoplasm of digestive organs
CPT/HCPCS: 43239; 45380; 45385; J2250; J2405; J2704; J2765; J3010; 45378

== ENCOUNTER → 2022-05-20 | Outpatient (CLI) | payer OTHER ==
[~2022-05-20] MED LIST changes: -FENTANYL CITRATE/PF 100MCG/2 ML INJ ONE; -METOCLOPRAMIDE HCL 10 MG/2ML VIAL ONE; -MIDAZOLAM HCL 2 MG/2 ML VIAL ONE; -ONDANSETRON HCL INJ 2MG/ML 2ML 2 MG/ML VIAL ONE; -POVIDONE IODINE 0.05% 0.05 % ML PO ONE; -PROPOFOL IV EMULSION 10 MG/ML 20 ML VIAL ONE; +XANAX0.25 MG PO
== END ==
LOC: NM 09:02
PROVIDERS: ATTEND Internal Medicine Gastroenterology
DX: K82.8 Other specified diseases of gallbladder (principal)
CPT/HCPCS: 78227; A9537